=== PATIENT | female | born 1965 | race African-American/Black ===

== ENCOUNTER 2018-09-14 10:41 | Outpatient (CLI) | payer OTHER ==
--- NOTE | 2018-09-14 11:21 | RAD ---
TWO VIEWS CHEST: Comparison: 06-21-16 History: Cough. FINDINGS: Two views of the chest show normal sized cardiomediastinal silhouette. There is no evidence of consol idation, mass, or pleural effusion. The bones are unremarkable. IMPRESSION: No evidence of acute cardiopulmonary disease. POS: [facility]
== END 2018-09-14 10:42 | disposition home or self-care (01) ==
LOC: RAD 10:41
PROVIDERS: ATTEND Physician Assistant
DX: R05 Cough (principal)
CPT/HCPCS: 71046

== ENCOUNTER 2020-04-24 14:46 | Outpatient (CLI) | payer OTHER ==
--- NOTE | 2020-04-24 15:24 | RAD ---
AP view of the pelvis INDICATION: SI joint pain COMPARISON: None. FINDINGS: Bones: No acute fracture or subluxation is evident. Bone mineralization appears within normal limits. Hips: Intact. SI joints and symphysis pubis: Normal appearing. Intrapelvic contents: Within normal limits. IMPRESSION: No acute osseous abnormality.
== END 2020-04-24 14:47 | disposition home or self-care (01) ==
LOC: RAD 14:46
PROVIDERS: ATTEND Family Medicine
DX: M53.3 Sacrococcygeal disorders, not elsewhere classified (principal)
CPT/HCPCS: 72170

== ENCOUNTER 2020-05-25 16:25 | Outpatient (CLI) | payer OTHER ==
--- NOTE | 2020-05-25 16:58 | RAD ---
KUB AND UPRIGHT: Date: 05/25/2020 HISTORY: Left-sided abdomen pain. FINDINGS: The bowel gas pattern is nonobstructed. No free air. No renal calculi. No acute bony findings. IMPRESSION: No acute findings. POS: [facility]
== END 2020-05-25 16:26 | disposition home or self-care (01) ==
LOC: BICRAD 16:25
PROVIDERS: ATTEND Family Medicine
DX: R10.32 Left lower quadrant pain (principal)
CPT/HCPCS: 36415; 74019; 80053; 83036; 85025

== ENCOUNTER 2020-05-26 11:09 | Outpatient (CLI) | payer OTHER ==
[~2020-05-26 11:09] MED LIST: Iopamidol 370 76% 100 ML VIAL ONE; Iopamidol 370 76% 50 ML VIAL FS ONE
--- NOTE | 2020-05-26 13:37 | CT ---
CT OF THE ABDOMEN AND PELVIS WITH IV CONTRAST INDICATION: Left lower quadrant abdominal pain COMPARISON: None FINDINGS: ABDOMEN: Lung bases: Clear Liver: No focal lesion. Gallbladder: Normal appearing. Pancreas: Normal. Adrenal glands: Normal. Spleen: Normal. Kidneys and ureters: There are multiple tiny focal hypodensities involving the kidneys. The largest a re consistent with cysts. The smaller hypodensities are too difficult characterize due to their size but statistically are also reflective of small cysts. No hydronephrosis is demonstrated. Vasculature: There are mild vascular calcifications seen involving the visualized vasculature. Lymph nodes:No lymphadenopathy. Free fluid in abdomen:No free fluid is evident. PELVIS: Small and large bowel: The incompletely opacified large and small bowel reveal no definite acute abno rmality. The small bowel is of normal caliber. There is very subtle wall thickening involving gastric antrum which is nonspecific. Appendix:Normal Bladder: Normal. Rectal and perirectal soft tissues:Normal. Reproductive structures: Normal. Free fluid in pelvis: No free fluid is evident. Lymphadenopathy pelvis: No lymphadenopathy is evident. Osseous structures: No acute osseous abnormality. No destructive osteolytic or osteoblastic lesion i s identified. There is scattered degenerative and osteoarthritic changes. Soft tissues:Normal. IMPRESSION: 1. Wall thickening involving gastric antrum may be related to underdistention; however, a gastritis r elated to infection or peptic ulcer disease is not excluded. 2. 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
== END 2020-05-26 11:10 | disposition home or self-care (01) ==
LOC: CT 11:09
PROVIDERS: ATTEND Physician Assistant
DX: R10.32 Left lower quadrant pain (principal); N28.1 Cyst of kidney, acquired; K31.89 Other diseases of stomach and duodenum
CPT/HCPCS: 74177; Q9967

== ENCOUNTER 2021-08-17 12:08 | Outpatient (CLI) | payer BC | END 2021-08-17 12:09 | disposition home or self-care (01) | LOC: BICRAD 12:08 | PROVIDERS: ATTEND Nurse Practitioner Family | DX: S93.492A Sprain of other ligament of left ankle, initial encounter (principal); S99.912A Unspecified injury of left ankle, initial encounter; S96.812A Strain of other specified muscles and tendons at ankle and foot level, left foot, initial encounter ==

== ENCOUNTER 2024-08-14 04:19 | Emergency (ER) | payer BC ==
[2024-08-14] MEDS ORDERED: hydrALAZINE 25 MG TAB ONE (05:31)
== END 2024-08-14 06:22 | disposition home or self-care (01) ==
LOC: ERS 04:19
DX: F22 Delusional disorders (principal); I10 Essential (primary) hypertension; F17.210 Nicotine dependence, cigarettes, uncomplicated
CPT/HCPCS: 99282